=== PATIENT | female | born 1975 | race American Indian/Alaskan Native ===

== ENCOUNTER 2019-12-12 06:19 | Day surgery (SDC) | payer BC ==
--- NOTE | 2019-12-11 17:44 | History and Physical Report ---
History of Present Illness Date of examination: 12/05/19 History of present illness: Patient has been reassessed/reevaluated. H&P has been reviewed. No interval changes. This is a 44 years old female who presents with menstrual disorder. She complains of heavy bleeding, clotting and history of fibroids, but denies i rregular menses, mid-cycle spotting, lack of menses, history of ovarian cysts, history of thyroid disease, history of PCOS, history of bleeding disorder, lightheadedness, fatigue and cramping. Menstrual flow lasts 5 days and > 7 days. Patient's work up has included hysterosonogram with a benign endometrial biopsy and revealed an intracavitary myoma. Patient's symptoms when present disrupts her normal daily activities Patient desires definitive treatment Patient Profile: 44 Years Old Female LMP: 12/02/2019 Height: 68 inches Weight: 284 pounds BMI: 43.18 Temp: 96.3 degrees F BP sittin / 80 (right arm) Menstrual History: LMP (date): 12/02/2019 Current Method of Contraception: None Date of Last Pap Smear: 10/16/2019 Past History : 1 Term Births: 0 Premature Births: 0 Living Children: 0 Para: 0 Mult. Births: 0 Prev : 0 Aborta: 1 Elect. Ab: 1 Spont. Ab: 0 Ectopics: 0 SALES SPECIALIST History Operations: D&C:EAB Abnormal PAP: negative Uterine Anomaly: positive fibroids Infection History HIV Risk Eval: no Personal hx. of genital herpes: no Hx of STD: None Current Allergies (reviewed today): * PENICILLIN (Critical) * NUTS (Critical) Past Medical History: Anemia Fibroids Past Surgical History: D&C:EAB Family History Summary: Other Family Member - Has No Family History of Ovarvian Cancer - Entered On: 10/16/2019 Other Family Member - Has No Family History of Colon Cancer - Entered On: 10/16/2019 Other Family Member - Has No Family History of Breast Cancer - Entered On: 10/16/2019 Other Family Member - Has Family History of Hypertension - Entered On: 10/16/2019 Other Family Member - Has Family History of Diabetes - Entered On: 10/16/2019 Other Family Member - Has Family History of CVA or Stroke - Entered On: 10/16/2019 Social History: Marital Status: Single Children: 0 Occupation: [employer] Smoking History: Patient has never smoked. Risk Factors: Smoked Tobacco Use: Never smoker Smokeless Tobacco Use: Never Passive smoke exposure: no Drug use: no Caffeine use: 0 drinks per day Alcohol use: no Exercise: no Seatbelt use: 100 % PAP Smear History: Date of Last PAP Smear: 10/16/2019 Review of Systems General Complains of fatigue. Denies fever, chills, sweats, anorexia, weakness, malaise, weight loss and sleep disorder. Complains of menorrhagia and painful periods. Denies vaginal discharge, incontinence, dysuria, hematuria, urinary frequency, amenorrhea, abnormal vaginal bleeding, pelvic pain, genital sores, decreased libido, painful sex, urinary urgency, hot flashes, vaginal dryness, vaginal itching and vaginal odor. CV Denies chest pains, palpitations, syncope, dyspnea on exertion, orthopnea, PND and peripheral edema. Resp Denies cough, dyspnea at rest, excessive sputum, hemoptysis, wheezing and pleurisy. GI Denies nausea, vomiting, diarrhea, constipation, change in bowel habits, abdominal pain, melena, hematochezia, jaundice, gas/bloating, indigestion/heartburn, dysphagia and odynophagia. Breast Denies left breast lump, right breast lump, nipple discharge, bloody discharge from nipple, breast pain, abnormal mammogram and breast enlargement. Psych Denies depression, anxiety, irritability and mood swings. Medications and Allergies Allergies Allergy/AdvReac Type Severity Reaction Status Date / Time nut - unspecified Allergy Anaphylaxis Verified 12/05/19 13:02 Penicillins Allergy Swelling Verified 12/05/19 13:02 Home Medications Medication Instructions Recorded Confirmed Last Taken Type Fexofenadine HCl [Vanessa Allergy] 180 mg PO DAILY 12/05/19 12/05/19 Unknown History Fluticasone [Flonase] 1 spray NS QDAY 12/05/19 12/05/19 Unknown History Multivitamin [Multiple Vitamins] 1 each PO DAILY 12/05/19 12/05/19 Unknown History Active Meds: Active Medications Lactated Ringer's (Lactated Ringers) 1,000 mls @ 100 mls/hr IV DIRECT SHAKA Stop: 12/12/19 23:59 Midazolam HCl (Versed) 2 mg IV PREOP NR Stop: 12/12/19 23:59 Exam - Physical Exam Narrative exam: HEENT: normocephalic, no lesions or deformities Skin no significant abnormal lesions or rashes Chest: respiratory effort normal, clear to auscultation CV: regular, normal S1-S2, no murmur, no rub, no gallop Abdomen: Obese, normal bowel sounds, soft, nontender, no HSM Neuro: no gross anomalities Extremities: no clubbing, cyanosis, or edema SALES SPECIALIST Exams Vulva/Vagina: No lesions, normal BUS, normal rugae Cervix: No lesions; no cervical motion tenderness Uterus: unable to palpate due to obesity Adnexae: unable to palpate due to obesity Rectovaginal: exam defered - Constitutional Vitals: Temp Pulse Resp BP Pulse Ox 98.8 F 94 H 20 173/104 99 12/10/19 08:30 12/10/19 08:30 12/10/19 08:30 12/10/19 08:30 12/10/19 08:30 Assessment and Plan - Patient Problems (1) Submucous leiomyoma of uterus Current Visit: No Status: Acute Plan to address problem: Diagnosis explained to patient . Questions answered. Patient's symptoms when present disrupts her normal daily activities Patient desires definitive treatment. Discussed with patient various medical, surgical and radiological therapies common for treatment including expectant management, myomectomy hysterectomy and uterine artery embolization Patient desires least invasive procedure Patient desires hysteroscopic myomectomy. Indications for and description of the hysteroscopy given. .Discussed risk of surgery including infection, bleeding and risk of perforating her uterus. Questions answered. Patient understands and desires to proceed (2) Excess, menstruation Current Visit: No Status: Acute Qualifiers: Menorrhagia type: with regular cycle Qualified Code(s): N92.0 - Excessive and frequent menstruation with regular cycle Plan to address problem: Probably secondary to # 1 (3) Dysmenorrhea Current Visit: No Status: Acute Plan to address problem: Probably secondary to # 1 (4) Anemia Current Visit: No Status: Acute Qualifiers: Iron deficiency anemia type: chronic blood loss Plan to address problem: Probably secondary to # 2 (5) Adult BMI 40.0-44.9 kg/sq m Current Visit: No Status: Acute
[~2019-12-12 06:19] MED LIST: LACTATED RINGERS 1,000 ML IV SCH; MIDAZOLAM 2 MG/2 ML INJ IV NR
[2019-12-12] MEDS ORDERED: ONDANSETRON 4 MG/2 ML INJ ONE (07:27)
[2019-12-12] MEDS ORDERED: dexAMETHasone 20 MG/5 ML VIAL ONE (07:27)
[2019-12-12] MEDS ORDERED: LIDOCAINE MPF (2%) 20 MG/1 ML VIAL 5 ML ONE (07:27)
[2019-12-12] MEDS ORDERED: ROCURONIUM 50 MG/5 ML INJ IV ONE (07:27)
[2019-12-12] MEDS ORDERED: fentaNYL 100 MCG/2 ML INJ ONE ×2 (07:28→07:59)
[2019-12-12] MEDS ORDERED: propofoL 200 MG/20 ML VIAL IV ONE (07:28)
[2019-12-12] MEDS ORDERED: HYDROmorphone 1 MG/1 ML INJ IV PRN (07:38)
--- NOTE | 2019-12-12 07:38 | Anesthesia Consultation ---
Anesthesia Consult and Med Hx Date of service: 12/12/19 - Airway Anesthetic Teeth Evaluation: Good ROM Head & Neck: Adequate Mental/Hyoid Distance: Adequate Mallampati Class: Class III Intubation Access Assessment: Possibly Difficult - Pulmonary Exam CTA: Yes - Cardiac Exam Cardiac Exam: RRR - Pre-Operative Health Status ASA Pre-Surgery Classification: ASA3 Proposed Anesthetic Plan: General - Pulmonary Hx Smoking: No Hx Respiratory Symptoms: No - Cardiovascular System Hx Hypertension: No - Central Nervous System CVA: No - Gastrointestinal Hx Gastroesophageal Reflux Disease: No - Endocrine Hx Renal Disease: No Hx Liver Disease: No Hx Insulin Dependent Diabetes: No Hx Non-Insulin Dependent Diabetes: No Hx Thyroid Disease: No - Hematic Hx Anemia: Yes - Other Systems Hx Obesity: Yes (BMI 41)
--- NOTE | 2019-12-12 07:39 | Anesthesia Day of Surgery ---
Anesthesia Day of Surgery - Day of Surgery Patient Examined: Yes Patient H&P Reviewed: Yes Patient is NPO: Yes
[2019-12-12] MEDS ORDERED: SODIUM CHLORIDE 0.9% IRR 1,500 ML BOTTLE IR ONE (08:27)
[2019-12-12] MEDS ORDERED: SILVER NITRATE APPLICATOR 1 EA TP ONE ×2 (08:31→09:02)
[2019-12-12] MEDS ORDERED: LACTATED RINGERS 1,000 ML ONE (08:50)
[2019-12-12] MEDS ORDERED: PHENYLEPHRINE/NS 1,000 MCG/10 ML SYRINGE (OR USE) IV ONE (08:50)
[2019-12-12] MEDS ORDERED: SODIUM CHLORIDE 0.9% IRRIG SOLN 2000 ML IR ONE (09:03)
[2019-12-12] MEDS ORDERED: SODIUM CHLORIDE 0.9% IRRIG SOLN 3000 ML IR ONE (09:04)
--- NOTE | 2019-12-12 09:08 | Operative Report ---
Operative Report Operative Report: Date of procedure: December 12, 2019 Pre-operative diagnosis: Symptomatic submucous and intramural leiomyomata Post-operative diagnosis: Same Procedure name(s): Operative hysteroscopy with MyoSure Surgeon: Stephen Fountain MD Upper Inspector: NOVA Anesthesia: Gen. EBL: Minimal Complications: None Findings: Patient with distorted endometrium due to her myomas. The large myoma seen at time a history of sonogram with the appearance of entered cavitary myoma on hysteroscopy appears to be a large intramural myoma causing eccentric pressure into the cavity distorting the cavity. Posteriorly could see the myoma and attempted with the shaving of that myoma but again that one appeared to be mostly extrinsic. Specimen(s): Uterine mass Procedure: Patient was brought into the operating room, where general anesthesia was induced without any difficulty. Patient was placed in dorsal lithotomy position. Prep and drape in the usual sterile manner. Timeout procedure was performed. The patient's bladder was emptied with a red rubber catheter. Speculum was placed in the vagina. Tenaculum was placed at 12:00 on the cervix. The cervical os was dilated to a 19 Occitan diameter. The hysteroscope was placed and the findings noted above. The MyoSure device was primed. The device was placed through the cervical os. The endometrium covering the posterior mass was removed using the MyoSure. Again does not appear to be an intracavitary lesion and I decided not to remove more tissue. There was no evidence of puncture on the uterine wall. All instruments were then removed. The tenaculum site the cervix required silver nitrate to achieve hemostasis. The patient was awakened in the operating room and accompanied to recovery room in good condition. Fluid deficit approximately 1700 cc
--- NOTE | 2019-12-12 09:12 | Short Stay Summary ---
Short Stay Documentation Date of service: 12/12/19 - History H&P: dictated - Allergies and Medications Current Medications: Allergies nut - unspecified Allergy (Verified 12/05/19 13:02) Anaphylaxis Penicillins Allergy (Verified 12/05/19 13:02) Swelling Home Medications Medication Instructions Recorded Confirmed Last Taken Type Fexofenadine HCl [Vanessa Allergy] 180 mg PO DAILY 12/05/19 12/12/19 12/11/19 09:00 History Fluticasone [Flonase] 1 spray NS QDAY 12/05/19 12/12/19 12/11/19 09:00 History Multivitamin [Multiple Vitamins] 1 each PO DAILY 12/05/19 12/12/19 12/11/19 09:00 History DOXYCYCLINE Hyclate [Vibramycin 100 mg PO Q12HR #14 capsule 12/12/19 Unknown Rx CAP] Ibuprofen [Motrin 800 MG tab] 800 mg PO Q6H PRN #30 tablet 12/12/19 Unknown Rx Active Medications Hydromorphone HCl (Dilaudid) 0.5 mg IV Q10MIN PRN PRN Reason: Pain , Severe (7-10) Stop: 12/12/19 23:00 Lactated Ringer's (Lactated Ringers) 1,000 mls @ 100 mls/hr IV DIRECT SHAKA Stop: 12/12/19 23:59 Last Admin: 12/12/19 07:20 Dose: 100 mls/hr Documented by: Midazolam HCl (Versed) 2 mg IV PREOP NR Stop: 12/12/19 23:59 Last Admin: 12/12/19 07:25 Dose: 2 mg Documented by: - Physical exam General appearance: no acute distress Integumentary: no rash HEENT: Atraumatic Lungs: Normal air movement Breasts: deferred Heart: Regular rate Gastrointestinal: normal Female Genitourinary: normal Rectal Exam: deferred Extremities: no ischemia, pulses intact, No edema - Brief post op/procedure progress note Date of procedure: 12/12/19 (See dictated operative note for details) - Hospital course Hospital course: Patient was admitted underwent the above him procedure without any complications. Patient will be discharged with follow-up in office in 1-2 weeks for postop check. - Disposition Condition at discharge: Good Disposition: DC-01 TO HOME OR SELFCARE - Discharge Diagnoses (1) Submucous leiomyoma of uterus Status: Acute (2) Excess, menstruation Status: Acute Qualifiers: Menorrhagia type: with regular cycle Qualified Code(s): N92.0 - Excessive and frequent menstruation with regular cycle (3) Dysmenorrhea Status: Acute (4) Anemia Status: Acute Qualifiers: Iron deficiency anemia type: chronic blood loss (5) Adult BMI 40.0-44.9 kg/sq m Status: Acute Short Stay Discharge Plan Activity: no restrictions Diet: regular Additional Instructions: Patient to call office for fever, chills, excessive vaginal bleeding or pain not controlled by pain medication. Follow up with: ATTILA BURRELL MD [Primary Care Provider] - 7 Days Prescriptions: Ibuprofen [Motrin 800 MG tab] 800 mg PO Q6H PRN #30 tablet PRN Reason: Pain DOXYCYCLINE Hyclate [Vibramycin CAP] 100 mg PO Q12HR #14 capsule
[2019-12-12 09:17] LABS: BUN/Creatinine Ratio 16; Blood Urea Nitrogen 11 mg/dL (7-17)
[2019-12-12 09:18] LABS: Calcium 8.7 mg/dL (8.4-10.2); Hemolysis Index 14
[2019-12-12] MEDS ORDERED: IBUPROFEN 800 MG TAB PO PRN (10:00)
[2019-12-12 10:14] VITALS: BP 123/74
--- NOTE | 2019-12-12 10:21 | Post Anesthesia Evaluation ---
- Post Anesthesia Evaluation Patient Participated: Yes Airway Patent: Yes Stable Respiratory Function: Yes Nausea/Vomiting: No Temp > 96.8F: Yes Pain Manageable: Yes Adequeate Hydration: Yes Anesthesia Complications: No
== END 2019-12-12 06:20 | disposition home or self-care (01) ==
LOC: OR 06:19
PROVIDERS: ATTEND Obstetrics & Gynecology
DX: D25.0 Submucous leiomyoma of uterus (principal); N83.8 Other noninflammatory disorders of ovary, fallopian tube and broad ligament; Z20.828 Contact with and (suspected) exposure to other viral communicable diseases; N92.0 Excessive and frequent menstruation with regular cycle; N94.6 Dysmenorrhea, unspecified; D64.9 Anemia, unspecified; E66.9 Obesity, unspecified; K21.9 Gastro-esophageal reflux disease without esophagitis; M19.90 Unspecified osteoarthritis, unspecified site; Z68.41 Body mass index [BMI] 40.0-44.9, adult; Z88.0 Allergy status to penicillin; Z91.018 Allergy to other foods; Z79.899 Other long term (current) drug therapy; Z72.89 Other problems related to lifestyle
CPT/HCPCS: 36415; 58558; 80048; 88305; A4217; C1782; J1100; J2250; J2370; J2405; J2704; J3010; J7120; U0003

== ENCOUNTER 2020-01-30 05:55 | Observation (INO) | payer BC ==
--- NOTE | 2020-01-27 12:48 | Anesthesia Consultation ---
Anesthesia Consult and Med Hx Date of service: 01/30/20 - Airway Anesthetic Teeth Evaluation: Crowns ROM Head & Neck: Adequate Mental/Hyoid Distance: Adequate Mallampati Class: Class III Intubation Access Assessment: Probably Good - Pre-Operative Health Status ASA Pre-Surgery Classification: ASA3 Proposed Anesthetic Plan: General Nerve Block: TAP - Pulmonary Hx Respiratory Symptoms: No (+2FS) - Central Nervous System Hx Psychiatric Problems: No - Gastrointestinal Hx Gastroesophageal Reflux Disease: Yes - Endocrine Hx Insulin Dependent Diabetes: No Hx Non-Insulin Dependent Diabetes: No Hx Thyroid Disease: No - Hematic Hx Anemia: Yes Hx Sickle Cell Disease: No - Other Systems Hx Alcohol Use: Yes (Occas) Hx Cancer: No Hx Obesity: Yes
[2020-01-27 13:13] LABS: Basophils % (Auto) 0.8 % (0.0-1.8); Eosinophils # (Auto) 0.2 K/mm3 (0.0-0.4); Eosinophils % (Auto) 2.8 % (0.0-4.3); Hematocrit 32.4 % (30.3-42.9); Hemoglobin 10.3 gm/dl (10.1-14.3); Lymphocytes # (Auto) 1.3 K/mm3 (1.2-5.4); Lymphocytes % (Auto) 19.6 % (13.4-35.0); Mean Corpuscular HGB Conc 32 % (30-34); Mean Corpuscular Volume 74 fl (79-97); Monocytes # (Auto) 0.5 K/mm3 (0.0-0.8); Platelet Count 285 K/mm3 (140-440); Red Cell Distribution Width 17.9 % (13.2-15.2)
[2020-01-27 13:30] LABS: Blood Urea Nitrogen 9 mg/dL (7-17); Calcium 9.5 mg/dL (8.4-10.2); Hemolysis Index 6
[2020-01-27 13:38] LABS: BUN/Creatinine Ratio 15
--- NOTE | 2020-01-28 14:02 | History and Physical Report ---
History of Present Illness Date of examination: 01/23/20 History of present illness: Patient has been reassessed/reevaluated. H&P has been reviewed. No interval changes. This is a 44 years old female who presents with menstrual disorder. She complains of heavy bleeding, clotting and history of fibroids, but denies irr egular menses, mid-cycle spotting, lack of menses, history of ovarian cysts, history of thyroid disease, history of PCOS, history of bleeding disorder, lightheadedness, fatigue and cramping. Menstrual flow lasts 5 days and > 7 days. Patient's work up has included hysterosonogram with a benign endometrial biopsy and revealed what appeared to be an intracavitary myoma. Patient underwent a hysteroscopy for removal but the findings revealed no intracavity mass but extrinisic pressure from intramural myomas. Patient's symptoms when present disrupts her normal daily activities Patient desires definitive treatment Vital Signs: Patient Profile: 44 Years Old Female LMP: 12/31/2019 Height: 68 inches Weight: 289 pounds BMI: 43.94 Temp: 97.6 degrees F BP sittin / 80 (left arm) Menstrual History: LMP (date): 12/31/2019 Current Method of Contraception: None Date of Last Mammogram: 07/31/2019 Date of Last Pap Smear: 10/16/2019 Past History : 1 Term Births: 0 Premature Births: 0 Living Children: 0 Para: 0 Mult. Births: 0 Prev : 0 Aborta: 1 Elect. Ab: 1 Spont. Ab: 0 Ectopics: 0 DIPLOMATIC OFFICER History Operations: D&C:EAB Myosure Hysteroscopic Myomectomy (12/12/2019) Abnormal PAP: negative Uterine Anomaly: positive fibroids Infection History HIV Risk Eval: no Personal hx. of genital herpes: no Hx of STD: None Current Allergies: * PENICILLIN (Critical) * NUTS (Critical) Past Medical History: Anemia Fibroids Past Surgical History: D&C:EAB Myosure Hysteroscopic Myomectomy (12/12/2019) Family History Summary: Other Family Member - Has No Family History of Ovarvian Cancer - Entered On: 10/16/2019 Other Family Member - Has No Family History of Colon Cancer - Entered On: 10/16/2019 Other Family Member - Has No Family History of Breast Cancer - Entered On: 10/16/2019 Other Family Member - Has Family History of Hypertension - Entered On: 10/16/2019 Other Family Member - Has Family History of Diabetes - Entered On: 10/16/2019 Other Family Member - Has Family History of CVA or Stroke - Entered On: 10/16/2019 Social History: Marital Status: Single Children: 0 Occupation: [employer] Smoking History: Patient has never smoked. Risk Factors: Smoked Tobacco Use: Never smoker Smokeless Tobacco Use: Never Passive smoke exposure: no Drug use: no HIV high-risk behavior: no Caffeine use: 0 drinks per day Alcohol use: no Exercise: no Seatbelt use: 100 % Mammogram History: Date of Last Mammogram: 07/31/2019 PAP Smear History: Date of Last PAP Smear: 10/16/2019 Review of Systems General Complains of fatigue. Denies fever, chills, sweats, anorexia, weakness, malaise, weight loss and sleep disorder. Complains of menorrhagia and painful periods. Denies vaginal discharge, incontinence, dysuria, hematuria, urinary frequency, amenorrhea, abnormal vaginal bleeding, pelvic pain, genital sores, decreased libido, painful sex, urinary urgency, hot flashes, vaginal dryness, vaginal itching and vaginal odor. CV Denies chest pains, palpitations, syncope, dyspnea on exertion, orthopnea, PND and peripheral edema. Resp Denies cough, dyspnea at rest, excessive sputum, hemoptysis, wheezing and pleurisy. GI Denies nausea, vomiting, diarrhea, constipation, change in bowel habits, abdominal pain, melena, hematochezia, jaundice, gas/bloating, indigestion/heartburn, dysphagia and odynophagia. Breast Denies left breast lump, right breast lump, nipple discharge, bloody discharge from nipple, breast pain, abnormal mammogram and breast enlargement. Psych Denies depression, anxiety, irritability and mood swings. Past History Past Medical History: other (SEE HPI FOR DETAILS) Past Surgical History: Other (SEE HPI FOR DETAILS) Social history: full code, other (SEE HPI FOR DETAILS) Family history: other (SEE HPI FOR DETAILS) Medications and Allergies Allergies Allergy/AdvReac Type Severity Reaction Status Date / Time nut - unspecified Allergy Anaphylaxis Verified 01/24/20 18:53 Penicillins Allergy Swelling Verified 01/24/20 18:53 Home Medications Medication Instructions Recorded Confirmed Last Taken Type Fexofenadine HCl [Vanessa Allergy] 180 mg PO DAILY 12/05/19 01/24/20 12/11/19 09:00 History Fluticasone [Flonase] 1 spray NS QDAY 12/05/19 01/24/20 12/11/19 09:00 History Multivitamin [Multiple Vitamins] 1 each PO DAILY 12/05/19 01/24/20 12/11/19 09:00 History Ibuprofen [Motrin 800 MG tab] 800 mg PO Q6H PRN #30 tablet 12/12/19 01/30/20 01/28/20 09:00 Rx Active Meds: Active Medications Acetaminophen (Acetaminophen 500 Mg Tab) 1,000 mg PO ONCE SHAKA Stop: 01/30/20 21:00 Celecoxib (Celecoxib 200 Mg Cap) 400 mg PO PREOP NR Stop: 01/30/20 21:00 Fentanyl (Fentanyl 100 Mcg/2 Ml Inj) 100 mcg IV ONCE SHAKA Stop: 01/30/20 21:00 Gabapentin (Gabapentin 300 Mg Cap) 600 mg PO PREOP NR Stop: 01/30/20 21:00 Gentamicin Sulfate 400 mg/ (Sodium Chloride) 110 mls @ 200 mls/hr IV PREOP ONE; Protocol Stop: 01/30/20 17:14 Clindamycin HCl (Cleocin 900 Mg/50 Ml) 900 mg in 50 mls @ 100 mls/hr IV PREOP NR; Protocol Stop: 01/30/20 23:59 Lactated Ringer's (Lactated Ringers) 1,000 mls @ 125 mls/hr IV DIRECT SHAKA Magnesium Oxide (Magnesium Oxide 400 Mg Tab) 400 mg PO ONCE SHAKA Stop: 01/30/20 21:00 Midazolam HCl (Midazolam 2 Mg/2 Ml Inj) 2 mg IV PREOP NR Stop: 01/30/20 23:59 Review of Systems Constitutional: other (SEE HPI FOR DETAILS) Exam - Physical Exam Narrative exam: HEENT: normocephalic, no lesions or deformities Skin no significant abnormal lesions or rashes Chest: respiratory effort normal, clear to auscultation CV: regular, normal S1-S2, no murmur, no rub, no gallop Abdomen: Obese, normal bowel sounds, soft, nontender, no HSM Neuro: no gross anomalities Extremities: no clubbing, cyanosis, or edema DIPLOMATIC OFFICER Exams Vulva/Vagina: No lesions, normal BUS, normal rugae Cervix: No lesions; no cervical motion tenderness Uterus: unable to palpate due to obesity Adnexae: unable to palpate due to obesity Rectovaginal: exam defered - Constitutional Vitals: Temp Pulse Resp BP Pulse Ox 98.2 F 98 H 20 167/96 98 01/27/20 12:15 01/27/20 12:15 01/27/20 12:15 01/27/20 12:15 01/27/20 12:15 Results - Labs CBC & Chem 7: 01/27/20 12:35 01/27/20 12:35 Assessment and Plan - Patient Problems (1) Intramural leiomyoma of uterus Status: Acute Plan to address problem: Diagnosis explained to patient . Questions answered. Discussed with patient lorena ious medical, surgical and radiological therapies common for treatment including expectant management, myomectomy hysterectomy and uterine artery embolization Patient desires to retain future fertility. She desires myomectomy. Discussed risks and benefits of laparotomy and robotic assisted approaches Patient desires robotic assisted myomectomy. Discuss the risks of the surgery including infection, bleeding possibly heavy enough to require a blood transfusion, possible damage to bowel, bladder or ureter. Patient understands that there is a possibility that a hysterectomy maybe indicated for severe bleeding not resoved with conservative measures.Patient advised the small risks of spreading of malignancy if morcellator is used during the surgery patient understands and approve of use if necessary. All her questions were answered. Patient understands and desires to proceed. (2) Adult BMI 40.0-44.9 kg/sq m Status: Acute (3) Anemia Status: Acute Qualifiers: Iron deficiency anemia type: chronic blood loss (4) Dysmenorrhea Status: Acute Plan to address problem: Probably secondary to # 1 (5) Excess, menstruation Status: Acute Qualifiers: Menorrhagia type: with regular cycle Qualified Code(s): N92.0 - Excessive and frequent menstruation with regular cycle Plan to address problem: Probably secondary to # 1
[~2020-01-30 05:55] MED LIST changes: +ACETAMINOPHEN 500 MG TAB PO ONE; -LACTATED RINGERS 1,000 ML IV SCH; +MAGNESIUM OXIDE 400 MG TAB PO ONE; -MIDAZOLAM 2 MG/2 ML INJ IV NR
[2020-01-30] MEDS ORDERED: CELECOXIB 200 MG CAP PO NR (06:00)
[2020-01-30] MEDS ORDERED: GABAPENTIN 300 MG CAP PO NR (06:00)
[2020-01-30] MEDS ORDERED: fentaNYL 100 MCG/2 ML INJ IV SCH (06:00)
[2020-01-30] MEDS ORDERED: LACTATED RINGERS 1,000 ML IV SCH (06:00)
[2020-01-30] MEDS ORDERED: ACETAMINOPHEN 500 MG TAB PO SCH (06:00)
[2020-01-30] MEDS ORDERED: MAGNESIUM OXIDE 400 MG TAB PO SCH (06:00)
[2020-01-30] MEDS ORDERED: dexAMETHasone 20 MG/5 ML VIAL ONE ×2 (07:08→09:19)
[2020-01-30] MEDS ORDERED: BUPIVACAINE-EPINEPHRINE/PF 0.5%-1:200,000 (30 ML) VIAL INFILTRATI ONE (07:08)
[2020-01-30] MEDS ORDERED: BUPIVACAINE/PF (0.25%) 2.5 MG/ML 30 ML VIAL INFILTRATI ONE (07:08)
[2020-01-30] MEDS ORDERED: SODIUM CHLORIDE 0.9% 100 ML ONE (07:19)
[2020-01-30] MEDS ORDERED: VASOPRESSIN 20 UNIT/1 ML INJ ONE (07:19)
[2020-01-30] MEDS ORDERED: HYDROmorphone 1 MG/1 ML INJ IV PRN ×2 (07:23)
[2020-01-30] MEDS ORDERED: ONDANSETRON 4 MG/2 ML INJ IV PRN (07:23)
[2020-01-30] MEDS ORDERED: ROCURONIUM 50 MG/5 ML INJ IV ONE (07:24)
[2020-01-30] MEDS ORDERED: LIDOCAINE MPF (2%) 20 MG/1 ML VIAL 5 ML ONE (07:24)
[2020-01-30] MEDS ORDERED: propofoL 200 MG/20 ML VIAL IV ONE (07:25)
[2020-01-30] MEDS: MIDAZOLAM 2 MG/2 ML INJ IV NR ×2 (07:25→07:35)
--- NOTE | 2020-01-30 07:25 | Anesthesia Day of Surgery ---
Anesthesia Day of Surgery - Day of Surgery Patient Examined: Yes (Reports "congestion" Lungs-CTA; CV-RRR) Patient H&P Reviewed: Yes Patient is NPO: Yes
[2020-01-30] MEDS ORDERED: CITRIC ACID-SOD CITRATE 500 ML IV ONE (07:33)
[2020-01-30] MEDS ORDERED: MIDAZOLAM 2 MG/2 ML INJ IV ONE (07:35)
[2020-01-30] MEDS ORDERED: VASOPRESSIN 20 UNIT/1 ML INJ IM ONE (08:47)
[2020-01-30] MEDS ORDERED: SODIUM CHLORIDE 0.9% IRR 1,500 ML BOTTLE IR ONE (08:48)
[2020-01-30] MEDS ORDERED: CITRIC ACID-SOD CITRATE SOLN 500 ML IV SOLN IV ONE (08:48)
[2020-01-30] MEDS ORDERED: SODIUM CHLORIDE 0.9% 100 ML IVPB IV ONE (08:48)
[2020-01-30] MEDS ORDERED: SODIUM CHLORIDE 0.9% IRRIG SOLN 2000 ML IR ONE (08:48)
[2020-01-30] MEDS ORDERED: LACTATED RINGERS 1,000 ML ONE (09:19)
[2020-01-30] MEDS ORDERED: HYDROmorphone 1 MG/1 ML INJ ONE (10:46)
[2020-01-30] MEDS ORDERED: GLYCOPYRROLATE 0.4 MG/2 ML INJ ONE (10:48)
[2020-01-30] MEDS ORDERED: NEOSTIGMINE 10MG/10 ML INJ MDV ONE (10:48)
[2020-01-30] MEDS ORDERED: PHENYLEPHRINE/NS 1,000 MCG/10 ML SYRINGE (OR USE) IV ONE ×2 (10:58)
[2020-01-30] MEDS ORDERED: NEOMY 3.5 MG/BACIT 400 UNITS/POLY B 5000 UNITS/GM OINT PACKET TP ONE (11:09)
--- NOTE | 2020-01-30 11:42 | Operative Report ---
Operative Report Operative Report: Date of procedure: January 30, 2020 Pre-operative diagnosis: Symptomatic leiomyomata with menorrhalgia and dysmenorrhea Post-operative diagnosis: Same Procedure name(s): Robotic assisted myomectomy Surgeon: Stephen Fountain MD Secy: Barbara Grajeda, certified nurse practitioner Anesthesia: General EBL: 100 cc Complications: None Findings: Patient with enlarged uterus approximately 14 to 16 weeks in size with 2 large leiomyomata posterior approximately 7 to 8 cm in diameter anteriorly approximately 5 to 6cm had normal-appearing fallopian tubes and normal-appearing ovaries bilaterally. Specimen(s): Leiomyomata Procedure: Patient taken operating room where general endotracheal anesthesia was induced difficulty. She was placed in dorsal lithotomy position prepped and draped in usual normal sterile fashion for robotic procedure. The Corral catheter was placed in urinary bladder without difficulty speculum placed in the vagina. A large V care uterine manipulator was placed without any difficulty. Then attention was switched to the patient's abdomen. Supra-umbilical incision was made with a knife. Spread with a hemostat. A 10-12 Trocar was placed in this incision while lifting out anterior abdominal wall under direct visualization. Intra-abdominal cavity was entered without any evidence of internal organ damage. Patient was insufflated approximately 3 and half liters of CO2 gas. Patient's pelvic findings noted above. The patient was perceived to be a can didate for robotic procedure. Three 8 mm robotic instrument trocars were placed. One on either side of the midline camera trocar approximately 8 cm from the midline and a third in the left lower quadrant approximately 2 fingerbreadths above the iliac crest. The trocars were placed under direct visualization with no signs of internal organ damage. An senior court office assistant port was placed in the right lower quadrant 2 fingerbreadths above the iliac crest under direct visualization without any evidence of internal organ damage, this was a 10-12 trocar. Adi Brady fascia closure systems were placed in both the right lower quadrant trocar position and the midline trocar camera position. The patient was then placed in severe Trendelenburg position. At this time the da Roman robot was docked on the patient's left side and robotic trocars were connected and robotic instruments placed in the normal fashion. At that time I took my place under the operating saldana. Patient's findings as noted above the larger myoma was anteriorly fundus Pitressin was then injected over the serosa and the myometrium under each of the myomas. Starting anteriorly midline did make incision with the robotic scissors through the serosa exposing the myoma myoma was removed with blunt dissection mostly with using some cautery for some bleeders are encountered removal of this myoma did entered the uterine cavity. ALL future pregnancies must be delivered by section. This defect was then closed in layers with 0 Vicryl barbed sutures in a running manner. This closure was hemostatic. The serosa was closed in running baseball stitch. The posterior moment was also removed in the same fashion with closure of the defect being hemostatic. Uterus was palpated to try to discover additional myomas could not perceive any additional myomas. The patient's pelvis was copiously irrigated. With the closures again appear hemostatic. Lamberto was placed over the surgery site for senior court office assistant to prevent postoperative bleeding. Interceed was placed over the suture lines in effort to prevent future adhesions. All instruments were then removed. The patient was deinsufflated. The da Roman device was undocked and moved away from patient trochars were removed the larger trochars were closed in layers with the skin layer being with 4 Monocryl. Dermabond was placed over these incisions. Patient tolerated procedure well was awakened in the operating room and accompanied to recovery room in good condition.
[2020-01-30] MEDS ORDERED: KETOROLAC 30 MG/1 ML INJ ONE (11:49)
[2020-01-30] MEDS ORDERED: KETOROLAC 30 MG/1 ML INJ IV ONE (11:52)
[2020-01-30] MEDS ORDERED: KETOROLAC 30 MG/1 ML INJ IV SCH (12:00)
--- NOTE | 2020-01-30 13:07 | Post Anesthesia Evaluation ---
- Post Anesthesia Evaluation Patient Participated: Yes Airway Patent: Yes Stable Respiratory Function: Yes Nausea/Vomiting: No Temp > 96.8F: Yes Pain Manageable: Yes Adequeate Hydration: Yes Anesthesia Complications: No Block Receding Appropriately: Yes Patient on Ventilator: No
[2020-01-30] MEDS ORDERED: MAGNESIUM HYDROXIDE (MOM) ORAL LIQD UDC PO PRN (14:00)
[2020-01-30] MEDS ORDERED: ACETAMINOPHEN 325 MG TAB PO PRN (14:00)
[2020-01-30] MEDS ORDERED: D5W/LACTATED RINGERS 1,000 ML IV SCH (14:00)
[2020-01-30] MEDS ORDERED: HYDROcodone/ACETAMINOPHEN 5-325 MG TAB PO PRN (14:00)
[2020-01-30] MEDS: CLINDAMYCIN 600 MG/50 mL 600 MG/50 ML BAG IV SCH ×2 (16:06→23:29)
[2020-01-30] MEDS ORDERED: GENTAMICIN 400 MG in SODIUM CHLORIDE 0.9% 100 ML IV ONE (16:42)
--- NOTE | 2020-01-30 17:33 | Short Stay Summary ---
Short Stay Documentation Date of service: 01/30/20 - History Past Medical History: other (SEE HPI FOR DETAILS) Past Surgical History: Other (SEE HPI FOR DETAILS) Social history: full code, other (SEE HPI FOR DETAILS) - Allergies and Medications Current Medications: Allergies nut - unspecified Allergy (Verified 01/24/20 18:53) Anaphylaxis Penicillins Allergy (Verified 01/24/20 18:53) Swelling Home Medications Medication Instructions Recorded Confirmed Last Taken Type Fexofenadine HCl [Vanessa Allergy] 180 mg PO DAILY 12/05/19 01/24/20 12/11/19 09:00 History Fluticasone [Flonase] 1 spray NS QDAY 12/05/19 01/24/20 12/11/19 09:00 History Multivitamin [Multiple Vitamins] 1 each PO DAILY 12/05/19 01/24/20 12/11/19 09:00 History Ibuprofen [Motrin 800 MG tab] 800 mg PO Q6H PRN #30 tablet 12/12/19 01/30/20 01/28/20 09:00 Rx Ferrous Sulfate [Feosol 325 MG tab] 325 mg PO BID #60 tablet 01/30/20 Unknown Rx Ibuprofen [Motrin 800 MG tab] 800 mg PO Q6H PRN #30 tablet 01/30/20 Unknown Rx oxyCODONE /ACETAMINOPHEN [Percocet 1 - 2 tab PO Q6HR PRN #20 tablet 01/30/20 Unknown Rx 5/325 mg] Active Medications Acetaminophen (Acetaminophen 325 Mg Tab) 650 mg PO Q4H PRN PRN Reason: Fever >100.5/ZIEGLER Hydrocodone Bitart/Acetaminophen (Hydrocodone/Acetaminophen 5-325 Mg Tab) 2 each PO Q6H PRN PRN Reason: Pain, Moderate (4-6) Docusate Sodium (Docusate Sodium 100 Mg Cap) 100 mg PO BID SHAKA Dextrose/Lactated Ringer's (D5lr) 1,000 mls @ 125 mls/hr IV DIRECT SHAKA Last Admin: 01/30/20 14:00 Dose: 125 mls/hr Documented by: Clindamycin HCl (Cleocin 600 Mg/50 Ml) 600 mg in 50 mls @ 100 mls/hr IV Q8H SHAKA; Protocol Stop: 01/31/20 01:29 Last Admin: 01/30/20 16:06 Dose: 100 mls/hr Documented by: Ibuprofen (Ibuprofen 800 Mg Tab) 800 mg PO Q8H PRN PRN Reason: Pain, Mild (1-3) Ketorolac Tromethamine (Ketorolac 30 Mg/1 Ml Inj) 30 mg IV Q6H SHAKA Stop: 01/31/20 06:00 Last Admin: 01/30/20 13:47 Dose: 30 mg Documented by: Magnesium Hydroxide (Magnesium Hydroxide (Mom) Oral Liqd Udc) 30 ml PO Q4H PRN PRN Reason: Constipation - Brief post op/procedure progress note Date of procedure: 01/30/20 (See dictated operative note) - Hospital course Hospital course: Patient was admitted and underwent above procedure without complications. Her post operative course was benign she was afebrile throughout. Patient postoperative hematocrit was in an acceptable range. Patient had no orthostatic symptoms. Patient was tolerating regular diet and voiding without difficulty at time of discharge. Patient incision was healing well without evidence of infection. - Disposition Condition at discharge: Good Disposition: [id number] TO HOME OR SELFCARE - Discharge Diagnoses (1) Intramural leiomyoma of uterus Status: Acute (2) Adult BMI 40.0-44.9 kg/sq m Status: Acute (3) Anemia Status: Acute Qualifiers: Iron deficiency anemia type: chronic blood loss (4) Dysmenorrhea Status: Acute (5) Excess, menstruation Status: Acute Qualifiers: Menorrhagia type: with regular cycle Qualified Code(s): N92.0 - Excessive and frequent menstruation with regular cycle (6) Status post myomectomy Status: Acute (7) Status post robot-assisted surgical procedure Status: Acute Short Stay Discharge Plan Activity: advance as tolerated Diet: regular Wound: open to air Additional Instructions: Patient instructed no heavy lifting for 4 weeks. No intercourse for 8 weeks. Call office for fever, chills, nausea, vomiting or pain not controlled by pain medications. Ambulation is encouraged. Patient's call for heavy vaginal bleeding. Patient instructed to keep her scheduled post operative office appointment. Follow up with: ATTILA BURRELL MD [Primary Care Provider] - 7 Days Prescriptions: Ferrous Sulfate [Feosol 325 MG tab] 325 mg PO BID #60 tablet Ibuprofen [Motrin 800 MG tab] 800 mg PO Q6H PRN #30 tablet PRN Reason: Pain oxyCODONE /ACETAMINOPHEN [Percocet 5/325 mg] 1 - 2 tab PO Q6HR PRN #20 tablet PRN Reason: Pain
--- NOTE | 2020-01-30 17:35 | Event Note ---
Date: 01/30/20 Day of surgery. Patient sent from the eating dinner she denies any nausea or vomiting. Discuss operative findings with patient and questions answered. Patient without fever. Will ambulate in halls this evening. Has not had spontaneous voiding yet and awaiting postop H&H. We will continue routine postoperative care.
[2020-01-30 19:47] LABS: Hematocrit 30.6 % (30.3-42.9); Hemoglobin 9.4 gm/dl (10.1-14.3)
[2020-01-30] MEDS ORDERED: DOCUSATE SODIUM 100 MG CAP PO SCH (22:00)
[2020-01-31] MEDS ORDERED: IBUPROFEN 800 MG TAB PO PRN (06:00)
[2020-01-31 09:13] VITALS: BP 123/74
== END 2020-01-31 11:00 | disposition home or self-care (01) ==
LOC: OR 05:55 → OB 11:53
PROVIDERS: ADMIT Obstetrics & Gynecology; ATTEND Obstetrics & Gynecology
DX: D25.9 Leiomyoma of uterus, unspecified (principal); Z20.828 Contact with and (suspected) exposure to other viral communicable diseases; N92.0 Excessive and frequent menstruation with regular cycle; D64.9 Anemia, unspecified; N94.6 Dysmenorrhea, unspecified; N92.6 Irregular menstruation, unspecified; Z98.890 Other specified postprocedural states; Z68.41 Body mass index [BMI] 40.0-44.9, adult
CPT/HCPCS: 36415; 58545; 64450; 80048; 84703; 85014; 85018; 85025; 86850; 86900; 86901; 88305; 96361; 96365; 96366; 96375; A4217; A6250; C1765; C1782; G0378; J1100; J1170; J1580; J1885; J2250; J2370; J2405; J2704; J2710; J3010; J7120; J7121; S2900; U0003